=== PATIENT | female | born 1955 | race Caucasian/White ===

== ENCOUNTER 2016-12-16 09:17 | Outpatient (CLI) | payer BC, OTHER ==
[2016-12-16 10:29] LABS: Hemoglobin A1c 5.3 % (4.0-6.0)
[2016-12-16 10:32] LABS: #Basophils 0.1 thou/uL (0.0-0.2); #Eosinphils 0.3 thou/uL (0.0-0.7); #Monocytes 0.4 thou/uL (0.11-0.59); #Neutrophils 2.5 thou/uL (1.40-6.50); %Basophils 1.9 % (0.0-1.0); %Lymphocytes 37.5 % (21.0-51.0); %Monocytes 7.6 % (0.0-10.0); Hemoglobin 14.2 g/dL (12.0-16.0); Mean Corpuscular HGB CONC 33.2 g/dL (32.0-36.0); Mean Corpuscular Hemoglobin 31.1 pg (27.0-31.0); Mean Corpuscular Volume 93.7 fl (81.0-99.0); Mean Platelet Volume 7.3 fL (7.4-10.4); Platelet Count 156 thou/uL (130-400); RBC Distribution Width 12.3 % (11.5-14.5); Red Blood Cell (RBC) Count 4.58 mill/uL (4.20-5.40); White Blood Cell (WBC) Count 5.3 thou/uL (4.8-10.8)
[2016-12-16 10:44] LABS: ALT (SGPT) 38 U/L (0-55); AST (SGOT) 35 U/L (5-34); Albumin 4.1 g/dL (3.4-4.8); Alkaline Phosphatase 118 U/L (40-150); Anion Gap 14 mmol/L (10-20); BUN (Urea Nitrogen) 20 mg/dL (9.8-20.1); Bilirubin, Total 0.5 mg/dL (0.2-1.2); Calc. Creatinine Clearance 0 mL/min (70-130); Calcium 9.6 mg/dL (7.8-10.44); Carbon Dioxide 26 mmol/L (23-31); Cardiac Risk 4.3 (Less than 4.5); Chloride 103 mmol/L (98-107); Cholesterol 222 mg/dL (< 200 Desired); Estimated GFR-MDRD 69; Globulin 3.1 g/dL (2.4-3.5); Glucose 102 mg/dL (80-115); HDL Cholesterol 52 mg/dL (>60 Neg Risk); LDL Cholesterol, Calculated 148 mg/dL; Potassium 4.2 mmol/L (3.5-5.1); Protein, Total 7.2 g/dL (5.8-8.1); Sodium 139 mmol/L (136-145); Triglycerides 110 mg/dL (Less than 150)
[2016-12-16 11:04] LABS: Thyroid Stimulating Hormone 3.652 uIU/mL (0.35-4.94); Vitamin D, 25 Hydroxy 30.1 ng/mL (> 30.0)
== END 2016-12-16 09:18 | disposition home or self-care (01) ==
LOC: MADLABBHPM 09:17
PROVIDERS: ATTEND Family Medicine
DX: R41.3 Other amnesia (principal); R21 Rash and other nonspecific skin eruption
CPT/HCPCS: 36415; 80053; 80061; 82306; 82607; 83036; 84443; 85025

== ENCOUNTER 2017-11-17 14:13 | Outpatient (CLI) | payer OTHER ==
--- NOTE | 2017-11-17 15:56 | RAD ---
BILATERAL KNEES THREE VIEWS EACH: 11/17/17 HISTORY: 62-year-old female with history of pain in both knees for one year. RIGHT KNEE THREE VIEWS: IMPRESSION: Mild degenerative changes without fracture or dislocation. LEFT KNEE THREE VIEWS: IMPRESSION: Mild degenerative changes without fracture or dislocation or other acute process. POS: [facility]
== END 2017-11-17 14:14 | disposition home or self-care (01) ==
LOC: MADRAD 14:13
PROVIDERS: ATTEND Family Medicine
DX: M25.562 Pain in left knee (principal); M25.561 Pain in right knee; M17.0 Bilateral primary osteoarthritis of knee
CPT/HCPCS: 73565

== ENCOUNTER 2020-06-12 12:27 | Outpatient (CLI) | payer MEDICARE ==
--- NOTE | 2020-06-12 12:55 | RAD ---
XR Abdomen 1 View/KUB History: Left upper quadrant pain Comparison: None. Findings: Right upper quadrant surgical clips. Moderate stool burden throughout the ascending colon. There are no upright views to evaluate for free intraperitoneal gas. No air-fluid levels. No abnormal calcifications project over the expected location of the renal shado ws. Lung bases appear relatively clear. Small phlebolith in the right hemipelvis. No acute osseous abnormality. Impression: No acute intra-abdominal abnormality.
[2020-06-12 13:19] LABS: #Basophils 0.1 thou/uL (0.0-0.2); #Eosinphils 0.4 thou/uL (0.0-0.7); #Lymphocytes 2.6 thou/uL (1.20-3.40); #Monocytes 0.4 thou/uL (0.11-0.59); #Neutrophils 3.2 thou/uL (1.40-6.50); %Basophils 1.3 % (0.0-1.0); %Eosinophils 6.8 % (0.0-10.0); %Lymphocytes 38.9 % (21.0-51.0); %Monocytes 5.3 % (0.0-10.0); %Neutrophils 47.6 % (42.0-75.0); Hemoglobin 14.9 g/dL (12.0-16.0); Mean Corpuscular HGB CONC 32.1 g/dL (32.0-36.0); Mean Corpuscular Hemoglobin 28.7 pg (27.0-31.0); Mean Corpuscular Volume 89.3 fL (78.0-98.0); Mean Platelet Volume 7.2 fL (7.4-10.4); Platelet Count 204 thou/uL (130-400); RBC Distribution Width 11.5 % (11.5-14.5); White Blood Cell (WBC) Count 6.6 thou/uL (4.8-10.8)
[2020-06-12 13:36] LABS: ALT (SGPT) 53 U/L (8-55); AST (SGOT) 48 U/L (5-34); Albumin 4.2 g/dL (3.4-4.8); Alkaline Phosphatase 102 U/L (40-110); Anion Gap 13 mmol/L (10-20); BUN (Urea Nitrogen) 14 mg/dL (9.8-20.1); Bilirubin, Total 0.7 mg/dL (0.2-1.2); Calc. Creatinine Clearance 0 mL/min (70-130); Calcium 9.4 mg/dL (7.8-10.44); Carbon Dioxide 28 mmol/L (23-31); Chloride 104 mmol/L (98-107); Cholesterol 217 mg/dl (< 200 Desired); Estimated GFR-MDRD 61; Globulin 3.7 g/dL (2.4-3.5); Glucose 105 mg/dL (80-115); HDL Cholesterol 54 mg/dL (>60 Neg Risk); LDL Cholesterol, Calculated 141 mg/dL; Potassium 4.3 mmol/L (3.5-5.1); Protein, Total 7.9 g/dL (6.0-8.3); Sodium 141 mmol/L (136-145); Triglycerides 110 mg/dL (Less than 150)
[2020-06-12 13:38] LABS: Amphetamine Not Detected (NotDetected); Barbiturates Screen Not Detected (NotDetected); Benzodiazepine Screen Detected (NotDetected); Cocaine Metabolite Screen Not Detected (NotDetected); Medtox Control Line Valid? VALID (VALID); Methadone Not Detected (NotDetected); Methamphetamine Not Detected (NotDetected); Opiate Screen Not Detected (NotDetected); Oxycodone Screen Not Detected (NotDetected); Phencyclidine (PCP) Not Detected (NotDetected); THC/Cannabinoid Screen Not Detected (NotDetected); Tricyclic Screen Not Detected (NotDetected)
== END 2020-06-12 12:28 | disposition home or self-care (01) ==
LOC: MADRAD 12:27 → MADLAB 12:28
PROVIDERS: ATTEND Family Medicine
DX: R10.12 Left upper quadrant pain (principal); E78.2 Mixed hyperlipidemia; F51.01 Primary insomnia; M79.7 Fibromyalgia; F41.9 Anxiety disorder, unspecified; R29.6 Repeated falls
CPT/HCPCS: 36415; 74018; 80053; 80061; 80306; 82306; 85025

== ENCOUNTER 2021-07-04 18:45 | Emergency (ER) | payer MEDICARE ==
[2021-07-04] MEDS ORDERED: Magnesium 2 GM/50 ML BAG (IN WATER) ONE (19:21)
[2021-07-04] MEDS ORDERED: Sodium Chloride 0.9% 1,000 ML ONE (19:21)
[2021-07-04 19:50] LABS: #Basophils 0.1 thou/uL (0.0-0.2); #Eosinphils 0.1 thou/uL (0.0-0.7); #Lymphocytes 1.5 thou/uL (1.20-3.40); #Monocytes 0.4 thou/uL (0.11-0.59); #Neutrophils 5.8 thou/uL (1.40-6.50); %Eosinophils 1.4 % (0.0-10.0); %Lymphocytes 18.8 % (21.0-51.0); %Monocytes 4.8 % (0.0-10.0); %Neutrophils 74.1 % (42.0-75.0); Hemoglobin 16.4 g/dL (12.0-16.0); Mean Corpuscular HGB CONC 31.3 g/dL (32.0-36.0); Mean Corpuscular Hemoglobin 29.2 pg (27.0-31.0); Mean Corpuscular Volume 93.4 fL (78.0-98.0); Platelet Count 144 thou/uL (130-400); RBC Distribution Width 12.9 % (11.5-14.5); White Blood Cell (WBC) Count 7.8 thou/uL (4.8-10.8)
[2021-07-04] MEDS ORDERED: Ondansetron PF 4 MG/2 ML Vial ONE (19:53)
[2021-07-04 20:02] LABS: ALT (SGPT) 73 U/L (8-55); AST (SGOT) 64 U/L (5-34); Albumin 4.1 g/dL (3.4-4.8); Alkaline Phosphatase 122 U/L (40-110); Anion Gap 21 mmol/L (10-20); BUN (Urea Nitrogen) 19 mg/dL (9.8-20.1); Bilirubin, Total 0.6 mg/dL (0.2-1.2); Calc. Creatinine Clearance 0 mL/min (70-130); Carbon Dioxide 17 mmol/L (23-31); Chloride 107 mmol/L (98-107); Globulin 3.9 g/dL (2.4-3.5); Glucose 153 mg/dL (80-115); Potassium 4.1 mmol/L (3.5-5.1); Sodium 141 mmol/L (136-145)
[2021-07-04] MEDS ORDERED: Nitroglycerin 2% Ointment 1 INCH/1 GM Packet ONE (20:11)
[2021-07-04] MEDS ORDERED: Aspirin Chewable 81 MG TAB ONE (20:11)
[2021-07-04 20:19] LABS: CKMB 1.7 ng/mL (0-6.6)
[2021-07-04 22:50] LABS: SARS-CoV-2 NAA Rapid Test Not Detected (NotDetected)
== END 2021-07-05 00:01 | disposition short-term general hospital (02) ==
LOC: MADERS 18:45
DX: R06.00 Dyspnea, unspecified (principal); R79.89 Other specified abnormal findings of blood chemistry; E86.0 Dehydration; Z20.822 Contact with and (suspected) exposure to COVID-19; J45.909 Unspecified asthma, uncomplicated; E66.01 Morbid (severe) obesity due to excess calories; Z79.899 Other long term (current) drug therapy; Z85.41 Personal history of malignant neoplasm of cervix uteri
CPT/HCPCS: 71045; 80053; 82553; 83880; 84484; 85025; 85379; 93005; U0002; 36415; 96365; 96375; J2405; J3475; J7050; J7620

== ENCOUNTER 2021-11-02 14:17 | Outpatient (CLI) | payer MEDICARE | END 2021-11-02 14:18 | disposition home or self-care (01) | LOC: MADRAD 14:17 → MADLAB 14:18 | PROVIDERS: ATTEND Family Medicine | DX: M79.672 Pain in left foot (principal) | CPT/HCPCS: 36415; 84550; 85652 ==

== ENCOUNTER 2023-05-25 15:48 | Emergency (ER) | payer MEDICARE ==
[2023-05-25] MEDS ORDERED: Ketorolac Tromethamine 30 MG/ML VIAL ONE (16:34)
[2023-05-25] MEDS ORDERED: Diazepam 5 MG TAB ONE (16:34)
== END 2023-05-25 16:39 | disposition home or self-care (01) ==
LOC: MADERS 15:48
DX: S16.1XXA Strain of muscle, fascia and tendon at neck level, initial encounter (principal); X58.XXXA Exposure to other specified factors, initial encounter
CPT/HCPCS: 96372; 99283; J1885